=== PATIENT | male | born 1940 | race Caucasian/White ===

== ENCOUNTER 2020-07-28 11:15 | Emergency (ER) | payer MEDICARE, SELFPAY ==
[2020-07-28] VITALS (8 sets, daily range): BP systolic 107–184; BP diastolic 64–119; PULSE 70–90; RESP 14–18; O2SAT 93–97; BMI 32.1
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
--- NOTE | 2020-07-28 11:28 | ECG_ITS ---
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 Measurements Intervals [place] Rate: 82 P: MN: -1 QRS: 48 QRSD: 167 T: -50 QT: 438 QTc: 512 Interpretive Statements ATRIAL FIBRILLATION WITH ABERRANT CONDUCTION OR VENTRICULAR PREMATURE COMPLEXES INDETERMINATE AXIS LEFT BUNDLE BRANCH BLOCK [120+ ms QRS DURATION, 80+ ms Q/S IN V1/V2, 85+ ms R IN I/aVL/V5/V6] No previous ECG available for comparison Electronically Signed On 07-28-2020 16:21:40 CDT by Gui Georges M.D. [email or web address]
[2020-07-28 11:45] LABS: Basophils # 0.1 10^3/uL (0.0-0.1); Basophils % 0.4 %; Eosinophils # 0.1 10^3/uL (0.0-0.8); Eosinophils % 0.7 %; Hematocrit 45.3 % (42.0-52.0); Hemoglobin 15.2 g/dL (11.7-16.6); Lymphocytes # 2.2 10^3/uL (0.8-4.8); Lymphocytes % 13.2 %; Mean Corpuscular HGB Conc 33.6 g/dL (30.0-36.0); Mean Corpuscular Hemoglobin 32.8 pg (28.0-34.0); Mean Corpuscular Volume 97.6 fL (80-94); Mean Platelet Volume 10.4 fL (7.4-10.4); Monocytes # 1.3 10^3/uL (0.2-0.9); Monocytes % 7.7 %; Neutrophils # 12.47 10^3/uL (1.8-7.7); Neutrophils % 74.9 %; Nucleated Red Blood Cells % 0 %; Platelet Count 279 10^3/cmm (130-400); Red Blood Count 4.64 10^6/uL (4.1-5.3); White Blood Count 16.7 10^3/uL (4.0-10.0)
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
[2020-07-28] MEDS: iodixanol 320 mg/mL 100mL Btl IV (11:53)
[2020-07-28 12:04] LABS: INR 1.29 (0.8-1.2)
[2020-07-28 12:07] LABS: Alanine Aminotransferase 40 U/L (0-41); Albumin Level 4.3 g/dL (3.5-5.2); Alkaline Phosphatase 83 IU/L (40-130); Aspartate Amino Transferase 60 U/L (0-40); Blood Urea Nitrogen 18 mg/dL (8-23); Calcium 9.5 mg/dL (8.5-10.5); Carbon Dioxide 24 mmol/L (22-29); Chloride 100 mmol/L (98-107); Creatinine Clr Calc Pharmacy 69.1333; Globulin 2.8 g/dL (1.3-4.6); Glucose 201 mg/dL (65-115); Lipase 34 U/L (13-60); Osmolality Calculated 288 mOsm/kg (285-295); Sodium 138 mmol/L (136-145); Total Bilirubin 1.4 mg/dL (0.15-1.2); Total Protein 7.1 g/dL (6.6-8.7)
[2020-07-28 12:08] LABS: Troponin(5th) Baseline 18 ng/L (0-15)
[2020-07-28 12:13] LABS: Alcohol Level < 10 mg/dL (0-10); Anion Gap 17.6 (5-19)
[2020-07-28 12:14] LABS: Potassium 3.6 mmol/L (3.5-5.1)
[2020-07-28 12:32] LABS: Lactic Sepsis W/Reflex 1.8 mmol/L (0.5-2.2)
[2020-07-28] MEDS: morphine 4 mg/mL SDV 1 mL IVP (12:45)
[2020-07-28] MEDS: ondansetron 2 mg/ML SDV 2 mL 4 MG IVP (12:45)
[2020-07-28] MEDS: HYDROmorphone 1 mg/mL INJ 1 mL IVP (13:28)
--- NOTE | 2020-07-28 13:28 | ECG_ITS ---
[facility] Test Date: 2020-07-28 Pat Name: Santiago Kunz Department: Room: Gender: Male Patrol Commander: : 1940 Requested By: Laine Nam Order Number: [id number] Chela MD: Gui Georges M.D. Measurements Intervals [place] Rate: 89 P: TN: -1 QRS: -61 QRSD: 172 T: 89 QT: 435 QTc: 531 Interpretive Statements ATRIAL FIBRILLATION LEFT AXIS DEVIATION [QRS AXIS < -30] LEFT BUNDLE BRANCH BLOCK [120+ ms QRS DURATION, 80+ ms Q/S IN V1/V2, 85+ ms R IN I/aVL/V5/V6] Compared to ECG 07/28/2020 11:28:28 Left-axis deviation now present Ventricular premature complex(es) no longer present Aberrant conduction of supraventricular beat(s) no longer present Indeterminate axis no longer present Electronically Signed On 07-28-2020 16:26:14 CDT by Gui Georges M.D. [id number]
--- NOTE | 2020-07-28 13:45 | PC.NURSE ---
Report called to [facility]. Waiting for transport.
== END 2020-07-28 14:19 | disposition other institution (70) ==
PROVIDERS: Emergency Provider Emergency Medicine
DX: Z04.1 Encounter for examination and observation following transport accident (principal); V29.9XXA Motorcycle rider (driver) (passenger) injured in unspecified traffic accident, initial encounter
CPT/HCPCS: 12345; 29105; 36415; 70450; 71260; 72125; 73060; 74177; 80053; 80307; 83605; 83690; 84484; 85025; 85610; 86850; 86900; 93005; 96365; 96375; 99283; 99285; C9132; J1170; J2270; J2405; Q9967